=== PATIENT | female | born 1950 | race Caucasian/White ===

== ENCOUNTER 2023-04-20 09:30 | Outpatient (RCR) | payer OTHER, SELFPAY ==
--- NOTE | 2023-02-15 16:55 | PT.OPEX ---
[facility] PT [facility] Outpatient Eval Start: 02/15/23 07:51 Freq: Status: Active Protocol: Document 02/15/23 07:53 AMS (Rec: 02/15/23 16:47 AMS [id number]) E-signed By Phoebe Lam PT Physical Therapy Outpatient Evaluation Insurance Information Recert Due Date 05/11/23 Insurance Name [employer] Diagnosis Pain in right hip Pain in right knee Presence of right artificial knee joint Treating Diagnosis Right knee stiffness Right hip pain Muscle weakness Referring MD Edenilson Morgan Subjective Subjective New patient visit. Pleasant 72-year-old female presents with approximately 1.5 year duration and progressive loss in flexion right knee. She recalls experiencing and itch behind her knee 1.5 years ago. This eventually led to decreased bending of her right knee. No pain associated with this. She only experiences discomfort if she tries to force flexion. This lack in motion causes difficulty with stair use. She is an active individual, working at the [employer]. Of note, right TKA 11/23/2015 regions. Also here today for complaint of right lateral hip pain. Pain mainly at night, 1 month duration. Denies any groin pain. No known injury. Overall her lower extremities feel stable. She also has a history of left TKA that she says has very good range of motion. She had no postoperative complications from either knee and reports good motion with both knees postoperatively. Treat any discomfort with 2 tablets of Advil in the morning especially due to hip pain when getting out of bed in the morning. No evidence of loosening on radiographs. She has no pain within this knee with daily activities such as walking. Her only pain comes from trying to increase flexion when stair climbing. She also complains of cramping in her proximal right quad; I believe this is the result of never achieving full flexion and quad stretch. She appears disappointed with this news, but is willing to try some physical therapy to see if she can gain some flexion in these knees. -Edenilson Morgan, 04/27, confirmed by patient Pt presents to physical therapy with subacute right hip pain and decreased right knee ROM s/p right TKA in 2015 . In terms of the knee, she started noticing progressively decreased knee range of motion over time in the last year and a half. She does not have pain in the knee with any activities, but her main concern is not being able to do steps normally. She did PT following knee replacement and states her knee ROM was pretty good after this; feels it has gotten worse. Her goal is to increase her knee ROM by a few degrees to be able to do steps normally. Saw doctor , who wanted her to work on quad manual therapy and did not note any association between pruritis in posterior knee last year and decreased knee ROM. In terms of her hip, it bothers her in the morning when she goes to get up from a chair. It started about 2-3 months ago; she got up one morning and noticed it. She localizes the pain to right lateral hip, wrapping around to the posterior buttock. Functional limitations/ aggravating factors include getting up from a chair, swinging leg in and out of bed , sitting longer periods, sitting on soft surfaces, and sleeping on her hip. Easing factors include making sure her foot is straight forward when she stands and sitting on harder surfaces. She is not sure if the lateral hip injection on 01/13/23 helped. Goals include pain-free hip. Denies numbness and tingling. She denies any back pain or N/ T. Overall, right hip is staying similar, not worsening or improving. She has to walk 5,000 to 7,000 steps per shift at work, which does not bother her hip. She does not notice a difference in hip symptoms on week days (more walking) vs weekends (less walking). 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 No antalgic nature noted, no gait aid. BALANCE Single leg stance: 2-3 seconds B FUNCTIONAL MOBILITY Double leg squat: To 45 degrees, no pain Step down/SL squat: Lacks flexion required to complete, has to lift heel to compensate KNEE ROM R: 0-0-89 L: 0-0-110 END RANGE QUAD CONTROL Straight leg raise: No quad lag LUMBAR ROM Flexion: 100% Extension: 100% Right Sidebendin% Left Sidebendin% Right rotation: 100% Left rotation: 100% HIP ROM Flexion: 110/110 Extension: 15/15 Internal Rotation: 20/20 External Rotation: 45/45 Abduction: 45/45 LE MMT: Hip flexion: R 5/5 L 5/5 Hip abduction: R 4/5 L 5/5 Hip extension: R 5/5 L 5/5 Knee flexion: R 5/5 L 5/5 Knee extension: R 5/5 L 5/5 SPECIAL TEST Hip Labral/Intra-articular Pathology: -MERRILL: - -FADIR: - -Log Roll: - Knee ligamentous: - for all Hip impingement: -Scour test: - Gluteal tendinopathy: -30-sec SLS test: - JOINT MOBILITY/PALPATION Minor TTP over greater trochanter on right side, none to posterior buttock or lumbar spine TX: Pt educated in the following exercises to improve range of motion, tissue tolerance, and/ or strength with verbal/ tactile cues as necessary: Access Code: [email or web address] URL: [email or web address]. [employer]/ Date: 02/15/2023 Prepared by: Phoebe Lam Exercises - Supine Bridge with Resistance Band - 1 x daily - 4 x weekly - 3 sets - 10 reps - Sidelying Hip Abduction - 1 x daily - 7 x weekly - 3 sets - 10 reps - Standing Knee Flexion Stretch on Step - 1 x daily - 7 x weekly - 5-10 sets - 30- 60 seconds hold - Supine Quadriceps Stretch with Strap on Table - 1 x daily - 7 x weekly - 3 sets - 30-60 seconds hold - Supine Heel Slide with Strap - 1 x daily - 7 x weekly - 5 -10 sets - 30-60 seconds hold Functional Test Performed & Score LEFS: 55/80 Assessment Assessment/Impression Pt is a 72 -year-old female who presents with concerns of subacute right hip pain and low severity and irritability. She also has concerns of progressive right LE stiffness and decreased ROM over the last year. Pt had bilateral TKA surgeries 6 months apart in 2016 and states that she recovered her ROM to symmetrical, acceptable amount at that time. X-rays demonstrate stable knee implants and no concern. 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 On exam, patient also demonstrates notable objective findings including limited knee ROM R > L, normal hip mobility, impaired balance, pain with palpation over greater trochanter, pain-free lumbar exam, and decreased hip strength, leading to difficulties with getting up from a chair, swinging leg in and out of bed, sitting longer periods, sitting on soft surfaces, and sleeping on her hip. Her only limitation with her knee is climbing up and down stairs. Per recommendation from referring provider, will trial quad manual therapy next visit with Leann, who specializes in dry needling. I suspect the patient's ROM limitations are more intra-articular and scar- tissue related, but will assess whether dry needling helps with gaining flexion ROM . We discussed expectations with ROM gains at this time, as it is unlikely significant knee flexion ROM gains will be made 7 years s/p TKA surgery. Patient is appropriate for skilled physical therapy services to address the above deficits. Pt was agreeable with plan of care and goals established. Primary Functional Limitations Hip: getting up from a chair, swinging leg in and out of bed , sitting longer periods, sitting on soft surfaces, and sleeping on her hip Knee: navigating stairs ( downstairs more difficult) Plan of Care Rehabilitation Potential Good Rehabilitation Potential Comments Good for hip, fair for right knee ROM Physical Therapy Goals In 2 sessions: Pt will demonstrate consistent HEP compliance to ensure progress in reaching established goals during course of care. In 6-8 sessions: Pt will demonstrate >95 degrees R knee flexion for improved ability to navigate stairs. Patient will report pain levels < 2/10 with all activity (getting in and out of bed, standing up from chair ) in order to improve functional mobility at home, work, and during functional leisure activities. Patient is able to sleep with waking 0-1 times per week due to pain. Coordination/Communication With Referral Source Treatment Plan/Direct Interventions Gait Training,Joint Mobilization,Manual Therapy, Neuromuscular Re-ed,Self-Care/ Home Management,Therapeutic Activities,Therapeutic Exercises Frequency/Duration 1x/week for 6-8 weeks Patient Will Be Discharged From Therapy Completion of LTG(s), Independent w/HEP, Independently Progressing Evaluation Billing Untimed Code Treatment Minutes 25 Complexity Moderate Certification Information Initial Certification Date 02/15/23 Ending Certification Date 05/11/23 Provider Signature Shows Agreement With POC & Medical Necessity Physician Signature & Date Requested Please Sign/Date Here Physician Comment/Change : Physician NPI Number #
== END 2023-04-26 16:02 | disposition home or self-care (01) ==
PROVIDERS: PCP Physician Assistant Surgical; Visit Provider Physician Assistant Surgical
DX: M25.551 Pain in right hip (principal); M25.561 Pain in right knee; M16.11 Unilateral primary osteoarthritis, right hip; M25.651 Stiffness of right hip, not elsewhere classified; Z96.651 Presence of right artificial knee joint; M62.81 Muscle weakness (generalized); Z51.89 Encounter for other specified aftercare
CPT/HCPCS: 97110; 97140; 97162